=== PATIENT | female | born 1970 | race Caucasian/White ===

== ENCOUNTER 2025-01-29 08:11 | Outpatient (REF) | payer OTHER, SELFPAY ==
--- NOTE | ~2025-01-29 | XR_ITS ---
EXAMINATION: XR HAND, BILATERALLY CLINICAL INFORMATION: M06.9 - Rheumatoid arthritis, unspecified COMPARISON: None available. TECHNIQUE: PA, lateral, and oblique views of both hands. FINDINGS: No gross bony erosions. No acute cortical disruption or malalignment. No lytic or blastic lesions. There is mild joint space narrowing and proximal interphalangeal joints of the digits. No soft tissue calcifications. No subcutaneous emphysema. 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 EXAMINATION: XR WRIST, BILATERAL CLINICAL INFORMATION: M06.9 - Rheumatoid arthritis, unspecified COMPARISON: None available. TECHNIQUE: PA, lateral, and oblique views of both wrists. Scaphoid projection. FINDINGS: No bony erosions. No acute cortical disruption or malalignment. No lytic or blastic lesions. No subcutaneous emphysema. IMPRESSION: Normal x-ray wrists. EXAMINATION: XR ELBOW, BILATERALLY CLINICAL INFORMATION: M06.9 - Rheumatoid arthritis, unspecified COMPARISON: None available. TECHNIQUE: AP, lateral, and oblique views both elbows. FINDINGS: No acute cortical disruption or malalignment. No bony erosions. No lytic or blastic lesions. No joint effusion. No subcutaneous emphysema. IMPRESSION: Normal x-ray, elbows EXAMINATION: XR FOOT, BILATERALLY CLINICAL INFORMATION: M06.9 - Rheumatoid arthritis, unspecified COMPARISON: None available. TECHNIQUE: AP, lateral, and oblique views of both feet. FINDINGS: No bony erosions. No lytic or blastic lesions. No acute cortical disruption or malalignment. Small plantar calcaneal spur pronounced on the right foot. Exostosis at the Achilles tendon insertion, right foot. Degenerative changes in the tarsometatarsal joints. No joint effusion. No subcutaneous emphysema. No soft tissue calcifications. IMPRESSION: Mild degenerative changes in the tarsometatarsal joints. Small plantar calcaneal spur. Enthesopathy, Achilles tendon, right foot. EXAMINATION: XR KNEE BILATERALLY CLINICAL INFORMATION: M06.9 - Rheumatoid arthritis, unspecified COMPARISON: None available. TECHNIQUE: AP bilateral standing view of the knees was obtained Lateral and sunrise views both knees.. FINDINGS: Joint space narrowing involving mostly the medial compartment both knees with mild sclerosis along the articular surface. No acute fracture or dislocation. No lytic or blastic lesions. No suprapatellar bursa joint effusion. No metallic or radiopaque foreign body. IMPRESSION: Mild medial compartment osteoarthrosis/osteoarthritis. EXAMINATION: XR ANKLE, BILATERAL. CLINICAL INFORMATION: M06.9 - Rheumatoid arthritis, unspecified COMPARISON: None available. TECHNIQUE: AP, lateral, and mortise views of both ankles. FINDINGS: No acute cortical disruption or malalignment. No lytic or blastic lesions. Soft tissue edema pattern, medial malleolus right ankle. No joint effusion. Exostosis at the Achilles tendon insertion, right foot. Small plantar calcaneal spur. No bony erosions. IMPRESSION: No acute fracture or dislocation. Soft tissue edema pattern, medial malleolus. Enthesopathy, right Achilles tendon. Small plantar calcaneal spur. Electronically signed by: Bart Alanis MD 01/29/2025 11:14 AM KAJAL ANNE
--- OUTSIDE RECORDS SUMMARY | 2025-01-29 10:05 | XMS_ITS | Clinical Summary ---
Author Organization [facility] [address] [place] [address] [place] [phone] Phone Care Team Providers Care Security Alarm Installer Name Role Phone Dwayne Trent MD Primary Care Provider Allergies Active Allergy Reactions Criticality Noted Date Comments Benzocaine 12/31/2009 Pt states she cannot take any med with aida in it Medications Zepbound 15 mg/0.5 mL injection Inject 0.5 mL (15 mg total) under the skin every 7 (seven) days. 5 Active polyethylene glycol (Golytely) 236-22.74-6.74 -5.86 gram solution Take 4L by mouth once for one dose. May substitue any PEG. Starting at 2PM the day before your procedure drink 1 8oz glasses at your own pace until you complete half of the gallon. Finish 2nd half of the gallon at 8PM. 4000 mL 5 Active bisacodyL (DULCOLAX) 5 mg EC tablet Take 2 tablets by mouth right before beginning bowel prep. 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 Plaquenil not effective. Methotrexate helped, ran out of insuranece. Mtx restarted fall 2009 Encounters Date Type Department Care Team Description 11/14/2024 12:30 PM EDT Office Visit Adult Medicine [facility] [address] [place] [address] Shaina Augustine PA History of rheumatoid arthritis (Primary Dx); Arthralgia of multiple joints 11/07/2024 Telephone Gastroenterology - [address] [facility] [address] [place] [address] Karma Joseph MA from Last 3 Months Immunizations Immunization Administration Dates Next Due Influenza trivalent, with pr eservative (Fluzone; Afluria) 6mo and older 11/25/2011,01/06/2011,11/27/2009 Influenza, Unspecified 12/21/2023,01/14/2020 Pneumococcal polysaccharide 23 valent (Pneumovax 23) 2yo and older 03/02/2015 Td Tetanus diptheria (Tdvax) 7yo and older 12/20 Tdap Tetanus diptheria acell ular pertussis (Boostrix; Adacel) 7yo and older 06/22/2011 Surgical History Surgery Date Site/Laterality Comments APPENDECTOMY PROCEDURE: HISTORICAL APPENDECTOMY WISDOM TOOTH EXTRACTION PROCEDURE: HISTORICAL WISDOM TEETH EXTRACTION CHOLECYSTECTOMY PROCEDURE: HISTORICAL CHOLECYSTECTOMY TUBAL LIGATION PROCEDURE: HISTORICAL TUBAL LIGATION APPENDECTOMY PROCEDURE: VA APPENDECTOMY CHOLECYSTECTOMY PROCEDURE: VA LAPAROSCOPY SURG CHOLECYSTECTOMY CERVICAL BIOPSY W/ LOOP ELECTRODE EXCISION 1999 Medical History Medical History Date Comments Arthritis DX:Arthritis; CO MMENT: postive yg unclear dx Ankle arthritis 10/18/2009 DX:Ankle arthrit is Migraine headache 11/25/2011 DX:Migraine he adache Rh incompatibility 1993 Rheumatoid arthritis (CMS/HC C V24, [facility] V28) 2007 Hypothyroidism 2009 Family History Medical History Relation Name Comments Alcohol abuse Brother Ron Mental illness Brother Ron Suicide Attempts Brother Ron Alcohol abuse Father Ron Arthritis Father Ron Heart disease Father Ron Hypertension Father Ron skin cancer, he art failure No Known Problems Maternal Grandfather Cancer Maternal Grandmother Fabby Other cancer Maternal Grandmother Fabby lymphom a Arthritis Mother Josselin Cancer Mother Josselin Hypertension Mother Josselin skin cancer, ly mphoma, COPD, arthritis, CKD, DM Kidney disease Mother Josselin Lung disease Mother Josselin Arthritis Mother's Brother Raul No Known Problems Paternal Grandfather Alzheimer's disease Paternal Grandmother Jessika Dementia Paternal Grandmother Jessika No Known Problems Son Breast cancer Neg Hx Colon cancer Neg Hx Kidney cancer Neg Hx Ovarian cancer Neg Hx Pancreatic cancer Neg Hx Prostate cancer Neg Hx Uterine cancer Neg Hx Relation Name Status Comments Brother Ron Father Ron Alive Maternal Grandfather Maternal Grandmother Fabby Mother Josselin Alive Mother's Brother Raul Paternal Grandfather Paternal Grandmother Jessika Son Alive Social History Tobacco Use Types Packs/Day Years Used Date Smoking Tobacco: Never Smokeless Tobacco: Never Tobacco Cessation:Counseling Given: Not Answered Alcohol Use Standard Drinks/Week Comments Not Currently 0 (1 standard drink = 0.6 oz pur e alcohol) Housing Instability Answer Date Recorde d Are you worried that in the next 2 months you may not have stable housing? No 07/01/2024 Food Access & Nutrition Answer Date Rec orded Do you have access to a vari ety of food including fruits and vegetables? Yes 07/01/2024 Access to Healthcare Answer Date Record ed Within the last 3 months, ho w many times did you visit the emergency department for your medical care? 0 07/01/2024 Health Literacy Answer Date Recorded How often do you need to hav e someone help you when you read instructions, pamphlets, or other written material from your doctor or pharmacy? Never 07/01/2024 Caregiver: How often do you need to have someone help you when you read instructions, pamphlets, or other written material from your doctor or pharmacy? Not on file 07/01/2024 Financial Risk Answer Date Recorded How hard is it for you to pa y for the very basics like food, housing, medical care, and air conditioning / heating? Not very hard 07/01/2024 Transportation Answer Date Recorded Has the lack of transportati on kept you from meetings, work, or from getting things needed for daily living? No Has the lack of transportati on kept you from medical appointments or from getting medications? No 07/01/2024 Social Isolation Answer Date Recorded How often do you feel lonely or isolated from th ose around you? Never 07/01/2024 Food Risk Answer Date Recorded Within the past 12 months we worried whether our food would run out before we got money to buy more. Never true 07/01/2024 Within the past 12 months th e food we bought just didn't last and we didn't have money to get more. Never true 07/01/2024 Dependent Care Answer Date Recorded Do you need help finding or paying for care for your loved ones. For example, child support case officer or elderly care for an older adult? No 07/01/2024 Education Answer Date Recorded Do you think completing more education or training, like finishing a GED, going to college, or learning a trade, would be helpful for you? N/A 07/01/2024 Employment and Income Answer Date Recor ded During the last four weeks, have you been actively looking for work? No 07/01/2024 Living Situation Answer Date Recorded What is your living situation? Unrecognized valu e 07/01/2024 Comments No Sex and Gender Information Value Date Recorded Sex Assigned at Not on file Legal Sex Female 12:12 AM EST Gender Identity Not on file Sexual Orientation Not on file Obstetrics History * This document contains information received from the source organization and may not represent a complete record from that organization. Para Term AB IAB SAB Ectopic Multiple Livin g Live Births 2 1 1 1 1 Date Outcome GA Total Labor Labor/2nd/3rd Weight Sex Type Anes PTL Ade A1 A5 Name Clin 1993 Term 40w 0d M Vag-S pont Living [facility] Last Filed Vital Signs Vital Sign Reading Time Taken Comments Blood Pressure 119/79 11/14/2024 12:25 PM EDT Pulse 73 11/14/2024 12:25 PM EDT Temperature 35.8 C (96.5 F) 11/14/2024 12:25 PM EDT Respiratory Rate 17 11/14/2024 12:25 PM EDT Oxygen Saturation 97% 11/14/2024 12:25 PM EDT Inhaled Oxygen Concentration - - Weight 103 kg (226 lb) 11/14/2024 12:25 PM EDT Height 167.6 cm (5' 6 ) 11/14/2024 12:25 PM EDT Body Mass Index 36.48 11/14/2024 12:25 PM EDT Plan of Treatment Health Maintenance Due Date Last Done Comments Colorectal Cancer Screening: Colonoscopy 1971 Hepatitis B Vaccines (1 of 3 - 19+ 3-dose series) 10/21/1990 Pneumococcal Vaccine: 50+ Years (2 of 2 - PCV) 10/21/2021 03/02/2015 RSV Immunization Adult Patients (1 - Risk 50-74 years 1-dose series) 10/21/2021 Zoster Vaccines (1 of 2) 10/21/2021 COVID-19 Vaccine ( - season) 2024 01/12/2024, 09/15/2021, 02/23/2021, Additional history exists Influenza Vaccine (#1) 2024 , 02/23/2021, 01/14/2020, Additional history exists Social Influencers of Health Screening 07/01/2025 07/01/2024 Breast Cancer Screening 08/09/2026 08/09/2024 Cholesterol Screening (Lipid Panel) 12/20/2028 12/21/2023, 12/21/2023 Cervical Cancer Screening: HPV 07/08/2029 07/08/2024, 01/31/2012 DTaP,Tdap,and Td Vaccines (3 - Td or Tdap) 12/20/2033 12/21/2023, 06/22/2011 HIV Screening Completed 06/11/2009 Hepatitis C Screening Completed 11/28/2009 Depression Screening Completed 07/01/2024 HIB Vaccines Aged Out No longer eligi ble based on patient's age to complete this topic HPV Vaccines Aged Out No longer eligi ble based on patient's age to complete this topic Hepatitis A Vaccines Aged Out No long er eligible based on patient's age to complete this topic IPV Vaccines Aged Out No longer eligi ble based on patient's age to complete this topic MMR Vaccines Aged Out No longer eligi ble based on patient's age to complete this topic Meningococcal ACWY Vaccine Aged Out N o longer eligible based on patient's age to complete this topic Meningococcal B Vaccine Aged Out No l onger eligible based on patient's age to complete this topic RSV Immunization Patients Under 20 months Aged Out No longer eligible based on patient's age to complete this topic Varicella Vaccines Aged Out No longer eligible based on patient's age to complete this topic Procedures Procedure Name Priority Date/Time Associated Diagnosis Comments BORRELIA BURGDORFERI ANTIBODY Routine 11/14/2024 1:02 PM EDT History of rheumatoid arthritis Arthralgia of multiple joints URIC ACID Routine 11/14/2024 1:02 PM EDT History of rheumatoid arthritis Arthralgia of multiple joints YG IFA WITH TITER AND PATTERN Routine 11/14/2024 1:02 PM EDT History of rheumatoid arthritis Arthralgia of multiple joints CYCLIC CITRULLINATED PEPTIDE, IGG AND IGA Routine 11/14/2024 1:02 PM EDT History of rheumatoid arthritis Arthralgia of multiple joints C-REACTIVE PROTEIN Routine 11/14/2024 1: 02 PM EDT History of rheumatoid arthritis Arthralgia of multiple joints SEDIMENTATION RATE Routine 11/14/2024 1: 02 PM EDT History of rheumatoid arthritis Arthralgia of multiple joints RHEUMATOID FACTOR Routine 11/14/2024 1:0 2 PM EDT History of rheumatoid arthritis Arthralgia of multiple joints MG MAMMO DIGITAL SCREENING W ERNIE BILAT Routine 08/09/2024 1:18 PM EDT Encounter for screening mammogram for malignant neoplasm of breast HPV WITH REFLEX GENOTYPE Routine 07/08/2024 9:07 AM EDT Encounter for annual routine gynecological examination LIPID PANEL Routine 12/21/2023 HEPATITIS C SCREENING Routine 11/28/2009 HIV SCREENING Routine 06/11/2009 from Last 3 Months or Most Recently Relevant to Health Maintenance Results * Cyclic citrullinated peptide, IgG and IgA (11/14/2024 1:02 PM EDT) CCP AB Quant 8 <20 Units LAB CHEMISTRY METHOD 11/19/2024 10:57 AM EDT [facility] Cyclic Citrullinated Peptide (CCP) Antibody Negative Negative LAB CHEMISTRY METHOD 11/19/2024 10:57 AM EDT [facility] Blood Venous blood specimen / Unknown Venipuncture / Unknown 11/14/2024 1:02 PM EDT 11/14/2024 1:02 PM EDT us Shaina Augustine PA LAB BLOOD ORDERABLES Final Resul t Performing Organization Address [facility]/ZIP Co de Phone Number [facility] [address] [place] [address], [place] [phone] * (ABNORMAL) YG IFA with titer and pattern (11/14/2024 1:02 PM EDT) YG Positive (A) Negative 11/19/2024 3:05 PM EDT [facility] Comment:YG performed by ind irect immunofluorescence (IFA) using HEp-2 substrate. YG Pattern Homogene ous(A) (none) 11/19/2024 3:05 PM EDT [facility] Comment: May be Associated with SLE and drug-induced SLE. If clinical suspicion of SLE consider testing for anti-dsDNA and anti-Sm. If established SLE to assess disease activity and/or prognosis, consider testing for anti-dsDNA. If clinical suspicion of drug induced LE no further testing is indicated. Titer 1:640(A) <1:160 11/19/2024 3:05 PM EDT [facility] Blood Venous blood specimen / Unknown Venipuncture / Unknown 11/14/2024 1:02 PM EDT 11/14/2024 1:02 PM EDT us Shaina Augustine PA LAB BLOOD ORDERABLES Final Resul t Performing Organization Address City/[facility]/ZIP Co de Phone Number [facility] [address] [place] [address], [place] [phone] * Borrelia burgdorferi antibody (11/14/2024 1:02 PM EDT) [facility] Lyme Ab Negative Negative LAB CHEMISTRY METHOD 11/15/2024 7:52 AM EDT [facility] Comment: No laboratory evidence of infection with B. burgdorferi (Lyme disease). Negative results may occur in patients recently infected (<=14 days) with B. burgdorferi. If recent infection is suspected, repeat testing on a new sample collected in 7- 14 days is recommended. Blood Venous blood specimen / Unknown Venipuncture / Unknown 11/14/2024 1:02 PM EDT 11/14/2024 1:02 PM EDT us Shaina Augustine PA LAB BLOOD ORDERABLES Final Resul t Performing Organization Address City/[facility]/ZIP Co de Phone Number [facility] [address] [place] [address], [place] [phone] * Sedimentation rate (11/14/2024 1:02 PM EDT) [facility] Sed Rate 26 0 - 30 mm/hr LAB HEMETOLOGY METHOD 11/14/2024 4:47 PM EDT [facility] Blood Venous blood specimen / Unknown Venipuncture / Unknown 11/14/2024 1:02 PM EDT 11/14/2024 1:02 PM EDT us Shaina Augustine PA LAB BLOOD ORDERABLES Final Resul t [facility] [address] [place] [address], [place] [phone] * Rheumatoid factor (11/14/2024 1:02 PM EDT) [facility] Rheumatoid Factor <10.0 <15.0 I Unit/mL LAB CHEMISTRY METHOD 11/14/2024 5:13 PM EDT [facility] Blood Venous blood specimen / Unknown Venipuncture / Unknown 11/14/2024 1:02 PM EDT 11/14/2024 1:02 PM EDT us Shaina SEARS LAB BLOOD ORDERABLES Final Resul t Performing Organization Address [facility] Co de Phone Number [facility] [address] [place] [address], [place] [phone] * C-reactive protein (11/14/2024 1:02 PM EDT) Pathologist [facility] C-Reactive Protein <0.29 <=0.50 mg/dL LAB CHEMISTRY METHOD 11/14/2024 5:11 PM EDT [facility] Blood Venous blood specimen / Unknown Venipuncture / Unknown 11/14/2024 1:02 PM EDT 11/14/2024 1:02 PM EDT us Shaina SEARS LAB BLOOD ORDERABLES Final Resul t Performing Organization Address [facility] de Phone Number [facility] [address] [place] [address], [place] [phone] * Uric acid (11/14/2024 1:02 PM EDT) [facility] Uric Acid 4.0 3.1 - 7.8 mg/dL LAB CHEMISTRY METHOD 11/14/2024 5:11 PM EDT [facility] Blood Venous blood specimen / Unknown Venipuncture / Unknown 11/14/2024 1:02 PM EDT 11/14/2024 1:02 PM EDT us Shaina SEARS LAB BLOOD ORDERABLES Final Resul t Performing Organization Address [facility] Co de Phone Number [facility] [address] [place] [address], [place] [phone] * MG Mammo Digital Screening w Ernie bilat (08/09/2024 1:18 PM EDT) Anatomical Region Laterality Modality Breast Bilateral Mammography 08/13/2024 10:1 8 AM EDT Impressions 08/13/2024 10:23 AM EDT No mammographic evidence of malignancy. A negative mammogram in the presence of a clinically suspicious palpable abnormality does not preclude the possibility of malignancy or alter the indications for biopsy. PQRI CPT II 3341F Code 11426, 85456 PQRI 225 CPT II 7025F TISSUE DENSITY: The breasts are almost entirely fatty. (BI-RADS Category A) IMPRESSION: Benign. BI-RADS CATEGORY: 1 - NEGATIVE RECOMMENDATION: Screening bilateral mammogram is recommended in 1 year. Mammo Location: [facility] [place] [facility], [address] [place] [address] -------- FINAL REPORT -------- Dictated By: Eber Brown Dictated Date: 08/13/2024 10:18 ET Assigned Physician: Eber Brown Reviewed and Electronically Signed By: Eber Brown Signed Date: 08/13/2024 10:23 ET Workstation ID: [id number] Transcribed By: Self Edit Transcribed Date: 08/13/2024 10:18 ET Narrative 08/13/2024 10:23 AM EDT CLINICAL: The patient is a 53 years Female presenting for routine screening mammography. COMPARISON: Outside mammograms performed 02/03/2023 and 12/08/2020. TECHNIQUE: Full-field digital mammography of the breasts bilaterally consisting of tomosynthesis in MLO and CC projection is performed in the Audyssey 2000-D unit. Computer aided detection utilizing the iCAD system was utilized. FINDINGS: The breasts are again seen to be largely fatty replaced. There is no cluster of microcalcifications, mass, or area of architectural distortion. There is no skin thickening or nipple retraction. Procedure Note Eber Brown MD - 08/13/2024 CLINICAL: The patient is a 53 years Female presenting for routinescreening mammography. COMPARISON: Outside mammograms performed 02/03/2023 and 12/08/2020. TECHNIQUE: Full-field digital mammography of the breasts bilaterallyconsisting of tomosynthesis in MLO and CC projection is performed in theGE Senographe 2000-D unit. Computer aided detection utilizing the Pixium VisionDsystem was utilized. FINDINGS: The breasts are again seen to be largely fatty replaced. Thereis no cluster of microcalcifications, mass, or area of architecturaldistortion. There is no skin thickening or nipple retraction. IMPRESSION: No mammographic evidence of malignancy. A negative mammogram in the presence of a clinically suspicious palpableabnormality does not preclude the possibility of malignancy or alter theindications for biopsy. PQRI CPT II 3341F Code 93876, 62953 PQRI 225 CPT II 7025F TISSUE DENSITY: The breasts are almost entirely fatty. (BI-RADS CategoryA) IMPRESSION: Benign. BI-RADS CATEGORY: 1 - NEGATIVE RECOMMENDATION: Screening bilateral mammogram is recommended in 1 year. Mammo Location: [facility] [place] [facility], [address] [place] [id number] -------- FINAL REPORT -------- Dictated By: Eber Brown Dictated Date: 08/13/2024 10:18 ET Assigned Physician: Eber Brown Reviewed and Electronically Signed By: Eber Brown Signed Date: 08/13/2024 10:23 ET Workstation ID: [id number] Transcribed By: Self Edit Transcribed Date: 08/13/2024 10:18 ET us Carole Reon CNM IMG BI PROCEDURES Final Res ult * HPV with reflex genotype (07/08/2024 9:07 AM EDT) HPV Negative Negative LAB MICROBIOLOGY METHOD 07/09/2024 1:51 PM EDT [facility] Broom Cervix uteri structure / Unknown 07/08/2024 9:07 AM EDT 07/09/2024 6:07 AM EDT Carole Reno CNM LAB MOLECULAR DIAGNOSTICS O RDERABLES Final Result [facility] [address] [place] [address], [place] [phone] * (ABNORMAL) Lipid panel (12/21/2023) Pathologist [facility] LDL/HDL Ratio 4 0 - 4 Triglycerides 174(A) 0 - 150 mg/dL Cholesterol 236(A) 0 - 200 mg/dL HDL 67 >=40 mg/dL LDL Cholesterol 135(A) 0 - 100 mg/dL Blood Venous blood specimen / Unknown Historical Provider LAB BLOOD ORDERABLES Poornima l Result * Hepatitis C Screening (11/28/2009) Pathologist [facility] Hepatitis C Screening abstracted [facility] Provider HEALTH MAINTENANCE Final Result * HIV Screening (06/11/2009) [facility] HIV Screening abstracted [facility] Provider HEALTH MAINTENANCE Final Result from Last 3 Months or Most Recently Relevant to Health Maintenance Insurance [employer] Care Teams Security Alarm Installer Relationship Specialty Start Date End Date Dwayne Trent MD [address] [place] [address] PCP - General Internal Medicine 01/09/24
[2025-01-29 13:36] LABS: MANUAL DIFF FLAG NO
[2025-01-29 13:46] LABS: Hematocrit 42.3 % (37.0-47.0); Hemoglobin 13.7 g/dl (12.0-16.0); Imm Gran Abs Auto 0.02 X10*3/uL (0.00-0.03); Imm Gran Pct Auto 0.4 % (0.0-0.4); Lymphocytes Absolute Auto 2.6 X10*3/uL (1.2-4.9); Mean Corpuscular HGB Conc 32.4 g/dl (31.0-35.0); Mean Corpuscular Hemoglobin 30.1 pg (27.0-33.0); Mean Corpuscular Volume 93.0 fL (80.0-98.0); NRBC Abs Auto 0.000 X10*3/uL (0.0-0.012); NRBC Pct Auto 0.0 /100WBC (0.0-0.2); Platelet Count 302 X10*3/uL (160-400); Red Blood Count 4.55 X10*6/uL (4.20-5.50); White Blood Count 5.6 X10*3/uL (4.8-10.8)
[2025-01-29 14:00] LABS: Alanine Aminotransferase 14 U/L (0-31); Albumin Level 4.6 g/dL (3.5-5.0); Alkaline Phosphatase 72 U/L (39-117); Anion Gap 12 (12-20); Aspartate Amino Transferase 20 U/L (5-31); Blood Urea Nitrogen 14 mg/dL (9-16); Calcium 9.5 mg/dL (8.4-10.2); Carbon Dioxide 27 mmol/L (22-29); Chloride 106 mmol/L (96-108); Estimated Glomerular Filt Rate > 60; Potassium 4.7 mmol/L (3.3-5.1); Sodium 140 mmol/L (135-145); Total Protein 7.8 g/dL (6.5-8.0)
[2025-01-30 03:58] LABS: HBS Num1 0.48 mIU/mL (0-7.99); HBc Num1 0.11 S/CO (0.00-0.79); HBsAGNum1 0.60 S/CO (0.00-0.99); Hepatitis B Surface Antigen Negative (Negative); ~HepC Num1 0.11 S/CO (0.00-0.79); ~Hepatitis B Surface Antibody NONREACTIVE (Nonreactive); ~Hepatitis C Antibody Nonreactive (Nonreactive)
[2025-02-01 18:02] LABS: TS Negative Control Passed; TS Panel A 0; TS Panel B 0; TS Positive Control Passed; TSpotTB Negative (Negative)
== END 2025-01-29 08:12 | disposition home or self-care (01) ==
LOC: HO.HKASLDS 08:11
PROVIDERS: PCP Physician Assistant; Visit Provider Student in an Organized Health Care Education/Training Program
DX: M08.89 Other juvenile arthritis, multiple sites (principal); Z51.81 Encounter for therapeutic drug level monitoring; Z79.631 Long term (current) use of antimetabolite agent
CPT/HCPCS: 36415; 73080; 73110; 73130; 73562; 73610; 73630; 80053; 85025; 85652; 86140; 86481; 86704; 86706; 86803; 87340

== ENCOUNTER 2025-01-29 08:11 | Outpatient (AMB) | payer OTHER, SELFPAY ==
--- NOTE | 2025-01-29 08:28 | A.OFFVIS_ITS ---
Vital Signs 01/29/25 08:35 Height 5 ft 6 in Weight 218 lb 11.177 oz BMI 35.3 BP 120/72 Blood Pressure Location Lt brachial Position Sitting Pulse 87 Pulse Source Pulse Oximeter Pulse Oximetry (%) 97 Oxygen Delivery Method Room Air Intake Visit Reasons: foot pain/ New Patient Intake Note: New patient presents for foot pain. Patient stated she has RA on LT hand and both feet/ankles. Patient also stated she has RT heel pain and can't wear close shoes. 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 First started with ankle swelling and pain. Started on methotrexate and folic acid. On this medication for about 6 years and was doing well. Wanted to get off medications and self discontinued it. Went to the [facility] treatment center about 2 years ago and was started back on the methotrexate. 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 Mixed hyperlipidemia Prediabetes Severe obesity Surgical History H/O wisdom tooth extraction S/P tubal ligation S/P cholecystectomy History of loop electrical excision procedure (LEEP) History of appendectomy Family History Mother Hypertension Arthritis Cancer Kidney disease Lung disease Father Hypertension Arthritis Alcohol abuse Heart disease Brother Suicide attempt Alcohol abuse FHx: mental illness Maternal Uncle Arthritis Maternal Grandmother Cancer Paternal Grandmother Alzheimer disease Dementia Social History (Reviewed 01/29/25 @ 08:35 by [facility] Comment: Not currently Patient Tobacco Use Status: Never used Tobacco e-Cigarette/Vaping Use: Never Used Review of Systems Narrative Review of Systems Constitutional: Denies fever, chills, weight loss ENT: Denies vision changes, eye pain or eye redness, dental caries, dry mouth GI: Denies nausea, vomiting, diarrhea, abdominal pain, change in BM Pulm: Denies SOB, CARNEY, hemoptysis, wheezing Cards: Denies chest pain, palpitations Skin: Denies Raynaud's, rash, nail changes, photosensitivity, [employer]: Denies headaches, weakness, paresthesias, recurrent falls MSK: as per HPI All other systems reviewed and are unremarkable except noted above Physical Exam Exam Exam: Vital signs reviewed Physical Examination CONSTITUITIONAL Patient alert and cooperative. Well appearing and in no apparent painful distress MSK Hands * Right Hand: Able to make a fist. No swelling. TTP MCPs 2nd - 4th * Left Hand: Able to make a fist. No swelling. TTP MCPs 2nd - 4th Wrists * Right Wrist: Full ROM to flexion and extension. No swelling. Mild TTP * Left Wrist: Full ROM to flexion and extension. No swelling. Mild TTP Elbows * Right Elbow: Full ROM. No swelling or TTP. No TTP of the medial epicondyle. No TTP of the lateral epicondyle * Left Elbow: Decreased ROM to extension. No swelling or TTP. No TTP of the medial epicondyle. No TTP of the lateral epicondyle Shoulders * Right shoulder: No swelling noted. No TTP of the AC joint. No TTP of the subacromial bursa. No TTP of the posterior shoulder * Left shoulder: No swelling noted. No TTP of the AC joint. No TTP of the subacromial bursa. No TTP of the posterior shoulder Knees * Right knee: No swelling noted. No TTP of the knee joint line. No TTP of pes anserine bursa * Left knee: No swelling noted. No TTP of the knee joint line. No TTP of pes anserine bursa. * Crepitations felt bilaterally Ankles * Right ankle: Good ankle dorsiflexion and plantar flexion. No swelling. TTP of the ankle joint * Left ankle: Good ankle dorsiflexion and plantar flexion. No swelling. TTP of the ankle joint Feet * Right foot: Positive squeeze test * Left foot: Positive squeeze test Tender points? * No tenderness to palpation of the bilateral trapezius, supraspinatus, anterior costochondral junctions, bilateral suboccipital muscle insertions SKIN No rashes Vital Signs: Last Vital Signs Pulse 87 01/29/25 08:35 BP 120/72 01/29/25 08:35 Pulse Ox 97 01/29/25 08:35 Oxygen Delivery Method Room Air 01/29/25 08:35 BMI result Body Mass Index 35.3 Results Reviewed Results Reviewed: No labs or imaging Assessment & Plan Assessment & Plan (1) Rheumatoid arthritis: Comment: Dx 2009 Methotrexate - effective. Self discontinued lost to follow up Code(s): M06.9 - Rheumatoid arthritis, unspecified Category: Medical Qualifiers: Rheumatoid arthritis location: multiple sites Rheumatoid factor presence: unspecified presence Qualified Code(s): M06.9 - Rheumatoid arthritis, unspecified Plan: #Rheumatoid arthritis Patient is a 54-year-old female with rheumatoid arthritis here today to reestablish care. Exam with evidence of synovitis. We will restart methotrexate and evaluate. Prior to starting the medication we will need to get labs checking her liver function and kidney function. Plan - Labs today: CBC, CMP, ESR, CRP, Hepatitis panel and T spot, RF, CCP - Once liver and kidney function okay start methotrexate 15mg weekly and folic acid 1mg - RTC 3 months - Labs before visit: CBC, CMP, ESR, CRP (2) Encounter for methotrexate monitoring: Code(s): Z51.81 - Encounter for therapeutic drug level monitoring; Z79.631 - penitentiary (current) use of antimetabolite agent Plan: #Long-term Current Use of Methotrexate Discussed with patient the benefits and risks of methotrexate for managing their rheumatic condition Benefits include reduced pain, reduced mortality, maintenance of remission and reduction of flares Risks include oral ulcers, photosensitivity, hepatotoxicity, hematologic toxicity, pneumonitis, flu-like symptoms (especially day after administration), nodulosis, lymphomas ? Limit alcohol and avoid Bactrim ? Monitoring: CBC, BMP, LFTs every 3-4 months and hepatitis serologies as needed ? Methotrexate is teratogenic. If planning need to discontinue 3 months prior to conception Plan This is my first visit with this patient. I spent 45 minutes reviewing the record, taking a history, examining the patient, discussing the treatment plan, ordering diagnostic work up and documenting in the medical record Orders: Orders Complete Blood Count Auto Diff Today M06.9 - Rheumatoid arthritis, unspecified Comprehensive Met. Panel Today M06.9 - Rheumatoid arthritis, unspecified Erythrocyte Sedimentation Rate Today M06.9 - Rheumatoid arthritis, unspecified Hepatitis B,C Profile Today M06.9 - Rheumatoid arthritis, unspecified, Z79.899 - Other senior living (current) drug therapy T Spot TB Today M06.9 - Rheumatoid arthritis, unspecified, Z79.899 - Other superintendent container terminal (current) drug therapy Erythrocyte Sedimentation Rate 3 Months Z79.899 - Other superintendent container terminal (current) drug therapy C Reactive Protein 3 Months Z79.899 - Other superintendent container terminal (current) drug therapy Complete Blood Count Auto Diff 3 Months Z79.899 - Other superintendent container terminal (current) drug therapy Comprehensive [place]. Panel Fast 3 Months Z79.899 - Other senior living (current) drug therapy C Reactive Protein Today M06.9 - Rheumatoid arthritis, unspecified XR ankle LT min 3V Today M06.9 - Rheumatoid arthritis, unspecified XR hand RT min 3V Today M06.9 - Rheumatoid arthritis, unspecified XR knee RT 3V Today M06.9 - Rheumatoid arthritis, unspecified XR elbow LT min 3V Today M06.9 - Rheumatoid arthritis, unspecified XR wrist LT min 3V Today M06.9 - Rheumatoid arthritis, unspecified XR foot LT min 3V Today M06.9 - Rheumatoid arthritis, unspecified Coding Level of Care Code New Pt Level 4 (22485) Complex EM visit Add On G2211 Diagnoses Rheumatoid arthritis involving multiple sites, unspecified whether rheumatoid factor present M06.9 Rheumatoid arthritis location: multiple sites Rheumatoid factor presence: unspecified presence Encounter for methotrexate monitoring Z51.81; Z79.631
[2025-01-29 08:35] VITALS: BP 120/72; PULSE 87; O2SAT 97; BMI 35.3
== END 2025-01-29 09:08 | disposition home or self-care (01) ==
LOC: HO.RHES 08:12
PROVIDERS: PCP Physician Assistant; Visit Provider Student in an Organized Health Care Education/Training Program
DX: M06.9 Rheumatoid arthritis, unspecified (principal); Z51.81 Encounter for therapeutic drug level monitoring; Z79.631 Long term (current) use of antimetabolite agent
CPT/HCPCS: 99204

== ENCOUNTER → 2025-01-29 10:00 | Outpatient (BNV) | payer OTHER, SELFPAY | PROVIDERS: PCP Physician Assistant; Visit Provider Radiology Diagnostic Radiology | DX: M06.9 Rheumatoid arthritis, unspecified (principal); M17.0 Bilateral primary osteoarthritis of knee; R60.0 Localized edema; M77.51 Other enthesopathy of right foot and ankle; M77.52 Other enthesopathy of left foot and ankle; M77.31 Calcaneal spur, right foot; M77.32 Calcaneal spur, left foot; M19.041 Primary osteoarthritis, right hand; M19.042 Primary osteoarthritis, left hand | CPT/HCPCS: 73080; 73110; 73130; 73562; 73610; 73630 ==